=== PATIENT | male | born 1960 | race Caucasian/White ===

== ENCOUNTER 2020-12-04 10:36 | Outpatient (REF) | payer MEDICARE, MEDICAID, SELFPAY ==
[2020-12-04 11:14] LABS: MANUAL DIFF FLAG NO
[2020-12-04 11:35] LABS: Basophils Percent Auto 0.4 % (0-2); Eosinophils Absolute Auto 0.2 X10*3/uL (0.0-0.4); Eosinophils Percent Auto 2.9 % (0-4); Hematocrit 45.6 % (42-52); Imm Gran Abs Auto 0.03 X10*3/uL (0.00-0.03); Imm Gran Pct Auto 0.4 % (0.0-0.4); Lymphocytes Absolute Auto 1.7 X10*3/uL (1.2-4.9); Lymphocytes Percent Auto 25.3 % (20-40); Mean Corpuscular HGB Conc 32.9 g/dl (31.0-36.0); Mean Corpuscular Hemoglobin 32.2 pg (27.0-33.0); Mean Corpuscular Volume 97.9 fL (80-98); Mean Platelet Volume 10.5 fL (9.4-12.4); Monocytes Absolute Auto 0.6 X10*3/uL (0.1-1.2); Monocytes Percent Auto 9.2 % (2-11); Neutrophils Absolute Auto 4.2 X10*3/uL (2.0-8.3); Neutrophils Percent Auto 61.8 % (45-73); Platelet Count 245 X10*3/uL (160-400); Red Blood Count 4.66 X10*6/uL (4.60-5.80); White Blood Count 6.8 X10*3/uL (4.8-10.8)
[2020-12-04 11:40] LABS: Alanine Aminotransferase 17 U/L (0-40); Albumin Level 4.4 g/dL (3.5-5.0); Alkaline Phosphatase 67 U/L (39-117); Anion Gap 12 (12-20); Aspartate Amino Transferase 17 U/L (5-37); Bilirubin Total 0.6 mg/dL (0.0-1.0); Blood Urea Nitrogen 10 mg/dL (9-16); Calcium 9.3 mg/dL (8.4-10.2); Carbon Dioxide 27 mmol/L (22-29); Chloride 105 mmol/L (96-108); Estimated Glomerular Filt Rate > 60; Glucose Random 135 mg/dL (60-115); Potassium 4.2 mmol/L (3.3-5.1); Sodium 140 mmol/L (135-145); Total Protein 7.1 g/dL (6.5-8.0)
== END 2020-12-04 10:37 | disposition home or self-care (01) ==
LOC: HO.LAB 10:36
PROVIDERS: PCP Internal Medicine; Visit Provider Physician Assistant Medical
DX: L40.0 Psoriasis vulgaris (principal); Z79.899 Other long term (current) drug therapy
CPT/HCPCS: 36415; 80053; 85025

== ENCOUNTER 2021-07-12 15:18 | Outpatient (REF) | payer MEDICARE, MEDICAID, SELFPAY ==
[2021-07-12 16:41] LABS: MANUAL DIFF FLAG NO
[2021-07-12 16:44] LABS: Basophils Percent Auto 0.6 % (0-2); Eosinophils Absolute Auto 0.1 X10*3/uL (0.0-0.4); Eosinophils Percent Auto 1.3 % (0-4); Hemoglobin 16.3 g/dl (14.0-18.0); Imm Gran Abs Auto 0.02 X10*3/uL (0.00-0.03); Imm Gran Pct Auto 0.3 % (0.0-0.4); Lymphocytes Absolute Auto 1.6 X10*3/uL (1.2-4.9); Lymphocytes Percent Auto 22.5 % (20-40); Mean Corpuscular Hemoglobin 32.9 pg (27.0-33.0); Mean Platelet Volume 10.6 fL (9.4-12.4); Monocytes Absolute Auto 0.5 X10*3/uL (0.1-1.2); Monocytes Percent Auto 6.6 % (2-11); Neutrophils Absolute Auto 4.8 X10*3/uL (2.0-8.3); Neutrophils Percent Auto 68.7 % (45-73); Platelet Count 276 X10*3/uL (160-400); Red Blood Count 4.95 X10*6/uL (4.60-5.80); Red Cell Distribution Width 13.3 % (11.0-16.0); White Blood Count 6.9 X10*3/uL (4.8-10.8)
[2021-07-12 16:50] LABS: Estimated Average Glucose 160 mg/dL; Hemoglobin A1c % 7.2 %
[2021-07-12 16:58] LABS: Alanine Aminotransferase 30 U/L (0-40); Albumin Level 4.5 g/dL (3.5-5.0); Alkaline Phosphatase 79 U/L (39-117); Anion Gap 13 (12-20); Aspartate Amino Transferase 25 U/L (5-37); Bilirubin Total 0.6 mg/dL (0.0-1.0); Blood Urea Nitrogen 12 mg/dL (9-16); Calcium 10.2 mg/dL (8.4-10.2); Carbon Dioxide 25 mmol/L (22-29); Chloride 106 mmol/L (96-108); Estimated Glomerular Filt Rate > 60; Glucose Random 177 mg/dL (60-115); Potassium 4.7 mmol/L (3.3-5.1); Sodium 139 mmol/L (135-145); Total Protein 7.5 g/dL (6.5-8.0)
[2021-07-12 16:59] LABS: Cholesterol 134 mg/dL; HDL Cholesterol 30 mg/dL; LDL Cholesterol Calculated 70 mg/dl; Triglycerides 173 mg/dL
[2021-07-12 17:19] LABS: Prostate Specific Antigen Scr 0.63 ng/mL (<0.05-4.0); Thyroid Stimulating Hormone 1.34 uIU/mL (0.32-4.0)
[2021-07-19 15:41] LABS: TS Negative Control Passed; TS Panel A 0; TS Panel B 2; TS Positive Control Passed; TSpotTB Negative (SeeBelow)
== END 2021-07-12 15:19 | disposition home or self-care (01) ==
LOC: HO.LAB 15:18
PROVIDERS: Absent Provider Physician Assistant Medical; PCP Internal Medicine; Visit Provider Internal Medicine
DX: Z12.5 Encounter for screening for malignant neoplasm of prostate (principal); E11.65 Type 2 diabetes mellitus with hyperglycemia; E78.00 Pure hypercholesterolemia, unspecified; L40.0 Psoriasis vulgaris; Z79.899 Other long term (current) drug therapy
CPT/HCPCS: 36415; 80053; 80061; 83036; 84153; 84443; 85025; 86481

== ENCOUNTER 2022-09-26 11:25 | Outpatient (REF) | payer MEDICARE, MEDICAID, SELFPAY ==
[2022-09-26 11:40] LABS: MANUAL DIFF FLAG NO
[2022-09-26 12:11] LABS: Basophils Percent Auto 0.3 % (0-2); Eosinophils Percent Auto 0.4 % (0-4); Hematocrit 51.6 % (42.0-52.0); Hemoglobin 17.2 g/dl (14.0-18.0); Imm Gran Abs Auto 0.02 X10*3/uL (0.00-0.03); Imm Gran Pct Auto 0.2 % (0.0-0.4); Lymphocytes Absolute Auto 1.5 X10*3/uL (1.2-4.9); Lymphocytes Percent Auto 14.7 % (20-40); Mean Corpuscular HGB Conc 33.3 g/dl (31.0-36.0); Mean Corpuscular Hemoglobin 32.6 pg (27.0-33.0); Mean Corpuscular Volume 97.7 fL (80.0-98.0); Mean Platelet Volume 10.6 fL (9.4-12.4); Monocytes Absolute Auto 0.6 X10*3/uL (0.1-1.2); Monocytes Percent Auto 6.1 % (2-11); Neutrophils Absolute Auto 7.8 x10*3/uL (2.0-8.3); Neutrophils Percent Auto 78.3 % (45-73); Platelet Count 255 X10*3/uL (160-400); Red Blood Count 5.28 X10*6/uL (4.60-5.80); Red Cell Distribution Width 13.5 % (11.0-16.0); White Blood Count 9.9 X10*3/uL (4.8-10.8)
[2022-09-26 12:12] LABS: Estimated Average Glucose 146 mg/dL; Hemoglobin A1c % 6.7 %
[2022-09-26 13:15] LABS: Blood Urea Nitrogen 17 mg/dL (9-16)
[2022-09-26 13:21] LABS: Alanine Aminotransferase 27 U/L (0-40); Albumin Level 4.7 g/dL (3.5-5.0); Alkaline Phosphatase 76 U/L (39-117); Anion Gap 17 (12-20); Aspartate Amino Transferase 20 U/L (5-37); Calcium 10.1 mg/dL (8.4-10.2); Carbon Dioxide 23 mmol/L (22-29); Chloride 103 mmol/L (96-108); Cholesterol 162 mg/dL; Estimated Glomerular Filt Rate > 60; Free T4 (Free Thyroxine) 0.69 ng/dL (0.71-1.85); Glucose Random 114 mg/dL (60-115); HDL Cholesterol 39 mg/dL; LDL Cholesterol Calculated 87 mg/dl; Potassium 4.4 mmol/L (3.3-5.1); Prostate Specific Antigen Scr 0.79 ng/mL (<0.05-4.0); Sodium 139 mmol/L (135-145); Total Protein 7.8 g/dL (6.5-8.0); Triglycerides 182 mg/dL
[2022-09-26 13:30] LABS: Folate 14.2 ng/mL (> or = 4.0); Vitamin B12 < 148 pg/mL (200-900)
[2022-09-26 17:55] LABS: Creatinine Urine 390.78 mg/dL; Microalbum/Creatinine Ratio Ur 33.7 ug/mg cr
== END 2022-09-26 11:26 | disposition home or self-care (01) ==
LOC: HO.LAB 11:25
PROVIDERS: PCP Internal Medicine; Visit Provider Internal Medicine
DX: Z12.5 Encounter for screening for malignant neoplasm of prostate (principal); E11.65 Type 2 diabetes mellitus with hyperglycemia; E78.00 Pure hypercholesterolemia, unspecified; I10 Essential (primary) hypertension
CPT/HCPCS: 36415; 80053; 80061; 82043; 82607; 82746; 83036; 84153; 84439; 84443; 85025

== ENCOUNTER 2023-08-24 13:15 | Outpatient (REF) | payer MEDICARE, MEDICAID, SELFPAY ==
[2023-08-26 22:34] LABS: TS Negative Control Passed; TS Panel A 0; TS Panel B 0; TS Positive Control Passed; TSpotTB Negative (Negative)
== END 2023-08-24 13:16 | disposition home or self-care (01) ==
LOC: HO.LAB 13:15
PROVIDERS: PCP Internal Medicine; Visit Provider Physician Assistant Medical
DX: L40.0 Psoriasis vulgaris (principal); L98.8 Other specified disorders of the skin and subcutaneous tissue; Z79.899 Other long term (current) drug therapy
CPT/HCPCS: 36415; 86481

== ENCOUNTER 2023-11-28 15:25 | Outpatient (AMB) | payer MEDICARE, MEDICAID, SELFPAY ==
[2023-11-28 15:29] VITALS: BP 138/86; PULSE 103; O2SAT 98; BMI 26.8
--- NOTE | 2023-11-28 15:29 | A.OFFPC_ITS ---
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 Patient's Cologuard test is up-to-date June 2022 [facility] Medical History (Updated 04/18/23 @ 08:37 by Aleksandr Valenzuela MD) Colon cancer screening History of cigarette smoking Initial Medicare annual wellness visit (~08/31/21) Colonoscopy refused Hypercholesterolemia Vitamin D deficiency Psoriasis Hypertension Fragile X syndrome Type 2 diabetes mellitus with hyperglycemia Surgical History History of inguinal hernia repair Family History Father Dementia Chronic mental illness Mental health disorder Mother Hypertension Hyperlipidemia Brother Diabetes Paternal Grandfather Pancreatic cancer Maternal Aunt Uterine cancer Maternal Uncle Stomach cancer Social History (Updated 08/31/21 @ 15:09 by DULCE Bran) Housing: Apartment Alcohol intake: never Patient Tobacco Use Status: Never used Tobacco e-Cigarette/Vaping Use: Never Used Second Hand Smoke Exposure: No service: No Current occupational status: unemployed Cognitive needs: No Hearing needs: No Vision needs: Yes Questionnaire Thrive Questionnaire Date Thrive assessed: 01/13/23 AUDIT C Alcohol Use Questionnaire (AUDIT-C) 1. How often do you have a drink containing alcohol?: Monthly or less 2. How many drinks containing alcohol do you have on a typical day when you are drinking?: 1 or 2 3. How often do you have six or more drinks on one occasion?: Never Total Score: 1 JUANITO-7 AMB Questionnaire JUANITO-7 Date JUANITO - 7 assessed: 11/28/23 Source: Developed by Drs. Vasyl Sequeira, Leyla Dia, Moody King and colleagues, with an educational joel from [employer]. Physical exam (Primary Care) Vital Signs: Last Vital Signs Pulse 103 H 11/28/23 15:29 BP 138/86 11/28/23 15:29 Pulse Ox 98 11/28/23 15:29 Oxygen Delivery Method Room Air 11/28/23 15:29 BMI result Body Mass Index 26.8 Tobacco/Smoking Status: Tobacco use Status Tobacco use date assessed 11/28/23 11/28/23 15:30 Patient Tobacco Use Status Never used Tobacco 11/28/23 15:30 e-Cigarette/Vaping Use Never Used 11/28/23 15:30 Thrive Assessment: Date of Thrive Assessment Date Thrive assessed 01/13/23 11/28/23 15:30 Const General: alert; No acute distress Eyes Conjunctivae: conjunctivae normal Resp Auscultation: clear to auscultation bilaterally Cardio Rate: regular rate Rhythm: regular rhythm GI Inspection: Yes normal to inspection Extrem General: Yes normal to inspection and No edema Office Procedures Flu Questionnaire Does the patient have a severe egg allergy?: No Does the patient have severe life threatening allergies?: No Does the patient have a fever or illness today?: No Has the patient ever had Guillain-[place] Syndrome?: No Has the patient ever had any past reaction to a flu shot?: No Results AMB Hemoglobin A1c AMB Hemoglobin A1c 7.4 % Last Edit by DULCE Jefferson on 11/28/23 15:44 Immunizations flu vacc [id number] 6mos up(PF) 60 mcg(15 mcgx4)/0.5 mL IM syringe Performing Provider: Aleksandr Valenzuela MD [facility] Administered by: DULCE Jefferson on 11/28/23 15:52 Dose Route Admin Location Dispensed Lot Number Expiration Date NDC Field Radio Operator 0.5 mL IM Left Deltoid 0.5 mL [id number] 04/28/24 [id number] Ludesi VIS Given Date VIS Provided VIS Publication Date 11/28/23 Single Vaccine 21 Eligibility Eligibility Date Funding Source Not VFC Eligible 11/28/23 Private Results Reviewed Results Reviewed: Laboratory Last Values Hgb A1c (Clinic) 7.4 % (4.0-6.0) H 11/28/23 14:48 Assessment and Plan Assessment & Plan (1) Type 2 diabetes mellitus with hyperglycemia: Comment: Declined ophthalmology referral August 2022 Code(s): E11.65 - Type 2 diabetes mellitus with hyperglycemia Qualifiers: Diabetes mellitus usp insulin use: without manager terminal use Qualified Code(s): E11.65 - Type 2 diabetes mellitus with hyperglycemia Plan: Decrease the amount of carbohydrate intake, pasta, bread, rice and potatoes are all sugar and that is aside from all the sweet stuff, remember that fruits are good but they are Sweet also. Hemoglobin A1c goal of less than 6.5. Patient is on metformin a 1000 mg twice a day (2) Hypertension: Code(s): I10 - Essential (primary) hypertension Qualifiers: Hypertension type: essential hypertension Qualified Code(s): I10 - Essential (primary) hypertension Plan: Continue with blood pressure medication. Decrease salt intake and exercise patient takes lisinopril 10 mg once a day (3) Hypercholesterolemia: Code(s): E78.00 - Pure hypercholesterolemia, unspecified Plan: Avoid fried foods, chicken skin, eggs, butter margarine, pastries and meat. Be it pork or beef they have a lot of cholesterol LDL goal of less than 100 and triglyceride of less than 150. Patient is reminded of the blood work patient takes rosuvastatin 20 mg once a day and fenofibrate 160 mg once a day (4) Fragile X syndrome: Code(s): Q99.2 - Fragile X chromosome Plan: Mental and behavior problem. Supportive Orders: Orders AMB Hemoglobin A1c Today E11.65 - Type 2 diabetes mellitus with hyperglycemia Influenza [id number] Immunization Today Z23 - Encounter for immunization Referrals Ophthalmology Referral E11.65 - Type 2 diabetes mellitus with hyperglycemia Podiatry Referral E11.65 - Type 2 diabetes mellitus with hyperglycemia Medications: New empagliflozin (Jardiance) 10 mg PO DAILY 30 tabs 3RF E11.65 - Type 2 diabetes mellitus with hyperglycemia Coding Level of Care Code Est Pt Level 4 (58755) Diagnoses Type 2 diabetes mellitus with hyperglycemia, without long-term current use of insulin E11.65 Diabetes mellitus manager terminal insulin use: without manager terminal use Essential hypertension I10 Hypertension type: essential hypertension Hypercholesterolemia E78.00 Fragile X syndrome Q99.2
== END 2023-11-28 16:00 | disposition home or self-care (01) ==
PROVIDERS: PCP Nurse Practitioner Family; Visit Provider Internal Medicine
DX: E11.65 Type 2 diabetes mellitus with hyperglycemia (principal); I10 Essential (primary) hypertension; E78.00 Pure hypercholesterolemia, unspecified; Q99.2 Fragile X chromosome; Z23 Encounter for immunization
CPT/HCPCS: 83036; 90471; 90686; 99214

== ENCOUNTER 2023-12-04 09:42 | Outpatient (REF) | payer MEDICARE, SELFPAY ==
[2023-12-04 10:15] LABS: MANUAL DIFF FLAG NO
[2023-12-04 10:37] LABS: Basophils Percent Auto 0.6 % (0-2); Eosinophils Absolute Auto 0.2 X10*3/uL (0.0-0.4); Eosinophils Percent Auto 2.4 % (0-4); Hematocrit 45.7 % (42.0-52.0); Hemoglobin 15.4 g/dl (14.0-18.0); Imm Gran Abs Auto 0.01 X10*3/uL (0.00-0.03); Imm Gran Pct Auto 0.1 % (0.0-0.4); Lymphocytes Absolute Auto 2.4 X10*3/uL (1.2-4.9); Lymphocytes Percent Auto 35.8 % (20-40); Mean Corpuscular HGB Conc 33.7 g/dl (31.0-36.0); Mean Corpuscular Hemoglobin 32.6 pg (27.0-33.0); Mean Corpuscular Volume 96.8 fL (80.0-98.0); Monocytes Absolute Auto 0.6 X10*3/uL (0.1-1.2); Monocytes Percent Auto 9.2 % (2-11); Neutrophils Absolute Auto 3.5 x10*3/uL (2.0-8.3); Neutrophils Percent Auto 51.9 % (45-73); Platelet Count 275 X10*3/uL (160-400); Red Blood Count 4.72 X10*6/uL (4.60-5.80); Red Cell Distribution Width 12.6 % (11.0-16.0); White Blood Count 6.8 X10*3/uL (4.8-10.8)
[2023-12-04 11:08] LABS: Estimated Average Glucose 157 mg/dL; Hemoglobin A1c % 7.1 % (<6.0)
[2023-12-04 11:16] LABS: Creatinine Urine 79.34 mg/dL; Microalbum/Creatinine Ratio Ur 12.6 ug/mg cr (<30)
[2023-12-04 11:21] LABS: Alanine Aminotransferase 13 U/L (0-40); Albumin Level 4.1 g/dL (3.5-5.0); Alkaline Phosphatase 79 U/L (39-117); Anion Gap 16 (12-20); Aspartate Amino Transferase 14 U/L (5-37); Bilirubin Total 0.3 mg/dL (0.0-1.0); Blood Urea Nitrogen 20 mg/dL (9-16); Calcium 9.8 mg/dL (8.4-10.2); Carbon Dioxide 24 mmol/L (22-29); Chloride 104 mmol/L (96-108); Estimated Glomerular Filt Rate 60; Glucose Random 133 mg/dL (60-115); Potassium 3.9 mmol/L (3.3-5.1); Sodium 140 mmol/L (135-145); Total Protein 7.2 g/dL (6.5-8.0)
[2023-12-04 11:39] LABS: Free T4 (Free Thyroxine) 0.71 ng/dL (0.71-1.85); Thyroid Stimulating Hormone 2.16 uIU/mL (0.32-4.0)
[2023-12-04 11:40] LABS: Folate 9.6 ng/mL (> or = 4.0); Prostate Specific Antigen Scr 0.58 ng/mL (<0.05-4.0); Vitamin B12 673 pg/mL (200-900)
== END 2023-12-04 09:43 | disposition home or self-care (01) ==
LOC: HO.LAB 09:42
PROVIDERS: PCP Internal Medicine; Visit Provider Internal Medicine
DX: Z12.5 Encounter for screening for malignant neoplasm of prostate (principal); E11.65 Type 2 diabetes mellitus with hyperglycemia
CPT/HCPCS: 36415; 80053; 82043; 82570; 82607; 82746; 83036; 84153; 84439; 84443; 85025

== ENCOUNTER 2024-03-26 12:16 | Outpatient (AMB) | payer MEDICARE, MEDICAID, SELFPAY ==
--- NOTE | 2024-03-26 12:35 | A.OFFPC_ITS ---
Vital Signs 03/26/24 12:36 Height 5 ft 10 in Weight 183 lb 6 oz BMI 26.3 BP 110/70 Blood Pressure Location Lt brachial Position Sitting Pulse 110 H Pulse Source Pulse Oximeter Pulse Oximetry (%) 96 Oxygen Delivery Method Room Air Intake Visit Reasons: DM Follow Up Intake Note: Patient is here to follow up on DM. Optician Apprentice Dispensing Required: No Compound Specialist: Not Required per policy Accompanied by: Self / Same As Patient Allergies folic acid Allergy (Unknown, Verified 03/26/24 12:36) Unknown Medication List - Last Reconciled 03/26/24 by Aleksandr Valenzuela MD cyanocobalamin (vitamin B-12) 1,000 mcg PO DAILY 90 days empagliflozin (Jardiance) 10 mg PO DAILY escitalopram oxalate 10 mg PO BID fenofibrate 160 mg PO DAILY lisinopril 10 mg PO DAILY metformin 1,000 mg PO BID 90 days rosuvastatin 20 mg PO DAILY Tobacco use date assessed: 03/26/24 Dental Screening Dental Screen Date: 11/28/23 HPI DM Follow Up HPI Details 64-year-old overweight male with a histo ry diabetes mellitus hypertension hypercholesterolemia. Patient does have a mental behavior problem coming in for follow-up. Patient was last seen in October and the last blood work was in November but cholesterol was not done at that time and request for blood work done. PAtient declined to have blood work done [facility] Medical History (Updated 04/18/23 @ 08:37 by Aleksandr Valenzuela MD) Colon cancer screening History of cigarette smoking Initial Medicare annual wellness visit (~08/31/21) Colonoscopy refused Hypercholesterolemia Vitamin D deficiency Psoriasis Hypertension Fragile X syndrome Type 2 diabetes mellitus with hyperglycemia Surgical History History of inguinal hernia repair Family History Father Dementia Chronic mental illness Mental health disorder Mother Hypertension Hyperlipidemia Brother Diabetes Paternal Grandfather Pancreatic cancer Maternal Aunt Uterine cancer Maternal Uncle Stomach cancer Social History Housing: Apartment Alcohol intake: never Patient Tobacco Use Status: Never used Tobacco e-Cigarette/Vaping Use: Never Used Second Hand Smoke Exposure: No service: No Current occupational status: unemployed Cognitive needs: No Hearing needs: No Vision needs: Yes Questionnaire PHQ-9 Over the last 2 weeks, how often have you been bothered by any of the following problems? 1. Little interest or pleasure in doing things: not at all 2. Feeling down, depressed, or hopeless: not at all 3. Trouble falling or staying asleep, or sleeping too much: not at all 4. Feeling tired or having little energy: not at all 5. Poor appetite or overeating: not at all 6. Feeling bad about yourself - or that you are a failure or have let yourself or your family down: not at all 7. Trouble concentrating on things, such as reading the newspaper or watching television: not at all 8. Moving or speaking so slowly that other people could have noticed. Or the opposite - being so fidgety or restless that you have been moving around a lot more than usual: not at all 9. Thoughts that you would be better off or of hurting yourself in some way: not at all Total score: 0 Depression Screening Interpretation: Negative Depression Screening Done: Yes Source: Developed by Drs. Vasyl Sequeira, Leyla Dia, Moody Kign and colleagues, with an educational joel from [employer]. Thrive Questionnaire Date Thrive assessed: 03/26/24 I am a: Patient What is your living situation today?: I have a steady place to live Within the past 12 months, did the food you bought not last and you didn't have the money to get more?: Never true Within the past 12 months, did you worry whether your food would run out before you got money to buy more?: Never true Do you have trouble paying for medicines?: No Do you have trouble getting transportation to medical appointments?: No Do you have trouble paying your heating and electricity bill?: No Do you have trouble taking care of your child, family member or friend?: No Do you have trouble with day-to-day activities such as bathing, preparing meals, shopping, managing finances, etc.?: No Are you currently unemployed and looking for a job?: No Are you interested in more education?: No Currently or been in a relationship where the following occur: no concerns reported THRIVE Score: 0 JUANITO-7 AMB Questionnaire JUANITO-7 Date JUANITO - 7 assessed: 11/28/23 Source: Developed by Drs. Vasyl Sequeira, Leyla Dia, Moody King and colleagues, with an educational joel from [employer]. Physical exam (Primary Care) Tobacco/Smoking Status: Tobacco use Status Tobacco use date assessed 11/28/23 11/28/23 15:30 Patient Tobacco Use Status Never used Tobacco 11/28/23 15:30 e-Cigarette/Vaping Use Never Used 11/28/23 15:30 Depression Screening Interpretation: Negative Thrive Assessment: Date of Thrive Assessment Date Thrive assessed 01/13/23 11/28/23 15:30 Currently or been in a relationship where the following occur: no concerns reported Const General: alert; No acute distress Eyes Conjunctivae: conjunctivae normal Resp Auscultation: clear to auscultation bilaterally Cardio Rate: regular rate Rhythm: regular rhythm GI Inspection: Yes normal to inspection Extrem General: Yes normal to inspection and No edema Results AMB Hemoglobin A1c AMB Hemoglobin A1c 7.0 % Last Edit by DULCE Bran on 03/26/24 12:54 Assessment and Plan Assessment & Plan (1) Type 2 diabetes mellitus with hyperglycemia: Comment: Declined ophthalmology referral August 2022 Code(s): E11.65 - Type 2 diabetes mellitus with hyperglycemia Qualifiers: Diabetes mellitus remote computer terminal operator insulin use: without remote computer terminal operator use Qualified Code(s): E11.65 - Type 2 diabetes mellitus with hyperglycemia Plan: Decrease the amount of carbohydrate intake, pasta, bread, rice and potatoes are all sugar and that is aside from all the sweet stuff, remember that fruits are good but they are Sweet also. Goal hemoglobin A1c is less than 6.5. On Jardiance 10 mg once a day metformin a 1000 mg twice a day (2) Hypertension: Code(s): I10 - Essential (primary) hypertension Qualifiers: Hypertension type: essential hypertension Qualified Code(s): I10 - Essential (primary) hypertension Plan: Continue with blood pressure medication. Decrease salt intake and exercise on lisinopril 10 mg once a day (3) Hypercholesterolemia: Code(s): E78.00 - Pure hypercholesterolemia, unspecified Plan: Avoid fried foods, chicken skin, eggs, butter margarine, pastries and meat. Be it pork or beef they have a lot of cholesterol on fenofibrate 160 mg once a day rosuvastatin 20 mg once a day. Patient was advised to get the blood work done. Orders: Orders AMB Hemoglobin A1c Today E11.65 - Type 2 diabetes mellitus with hyperglycemia Medications: Changed From empagliflozin (Jardiance) 10 mg PO DAILY 30 tabs 3RF E11.65 - Type 2 diabetes mellitus with hyperglycemia To empagliflozin 25 mg PO DAILY 30 tabs 3RF E11.65 - Type 2 diabetes mellitus with hyperglycemia Refilled rosuvastatin 20 mg PO DAILY 90 tabs 1RF E78.00 - Pure hypercholesterolemia, unspecified fenofibrate 160 mg PO DAILY 90 tabs 1RF E78.00 - Pure hypercholesterolemia, unspecified Coding Level of Care Code Est Pt Level 4 (91812) Diagnoses Type 2 diabetes mellitus with hyperglycemia, without long-term current use of insulin E11.65 Diabetes mellitus fpc insulin use: without fpc use Essential hypertension I10 Hypertension type: essential hypertension Hypercholesterolemia E78.00
[2024-03-26 12:36] VITALS: BP 110/70; PULSE 110; O2SAT 96; BMI 26.3
== END 2024-03-26 13:08 | disposition home or self-care (01) ==
PROVIDERS: PCP Internal Medicine; Visit Provider Internal Medicine
DX: E11.65 Type 2 diabetes mellitus with hyperglycemia (principal); I10 Essential (primary) hypertension; E78.00 Pure hypercholesterolemia, unspecified
CPT/HCPCS: 83036; 99214

== ENCOUNTER 2024-04-11 09:48 | Outpatient (AMB) | payer MEDICARE, MEDICAID, SELFPAY ==
--- NOTE | 2024-04-11 09:58 | A.OFFVIS_ITS ---
VS Expanded 04/11/24 10:00 04/16/24 09:36 Height 5 ft 10 in 5 ft 10 in Weight 183 lb 6.793 oz 183 lb BMI 26.3 26.3 Intake Visit Reasons: T2DM/CONFIMRED Allergies folic acid Allergy (Unknown, Verified 03/26/24 12:36) Unknown Nutrition Presentation Details: Pt presents for MNT for T2DM. Pt was referred by Dr. Valenzuela, PCP Pt requests meal planing ideas, simple for him to prepare. Pt reports using microwave to prepare meals Lives by himself, prepares own meals. Pt's case operator, Lanny, was present during this appt. food frequency fruits: 0-1/d, has light juice majority of the time fish: 0-1 /wk dairy : 3+ /day vegetables: 1 serving/d fried foods: 0-1/wk pastries : daily - acknowledges increasing on these types of foods lately physical activity: sedentary etoh: occ w fam member smoking: denies BS Monitoring Most Recent Diabetes Results: Microalb/Creat Ratio 12.6 ug/mg cr (<30) 12/04/23 Cholesterol 162 mg/dL 09/26/22 HDL Cholesterol 39 mg/dL 09/26/22 Triglycerides 182 mg/dL 09/26/22 Creatinine 1.23 mg/dL (0.5-1.4) 12/04/23 Blood Urea Nitrogen 20 mg/dL (9-16) H 12/04/23 Sodium 140 mmol/L (135-145) 12/04/23 Potassium 3.9 mmol/L (3.3-5.1) 12/04/23 Chloride 104 mmol/L (96-108) 12/04/23 Carbon Dioxide 24 mmol/L (22-29) 12/04/23 Calcium 9.8 mg/dL (8.4-10.2) 12/04/23 AST 14 U/L (5-37) 12/04/23 ALT 13 U/L (0-40) 12/04/23 Total Protein 7.2 g/dL (6.5-8.0) 12/04/23 Albumin 4.1 g/dL (3.5-5.0) 12/04/23 VPT-Bnglbmw-Mi.Jeor Equation Height: 5 ft 10 in Weight: 183 lb Resting Metabolic Rate: 1635.53 Calculated Activity Level: Mild Activity Calories Needed to Maintain Weight: 2248.85 Diagnosis Nutrition problem #1: food nutri know defi As related to (etiology) #1: diagnosis As evidenced by (sign/symptom) #1: knowledge deficit of diet ON LICENSE OF [facility] Medical History (Updated 04/13/24 @ 11:[address], LDN) Colon cancer screening History of cigarette smoking Initial Medicare annual wellness visit (~08/31/21) Colonoscopy refused Hypercholesterolemia Vitamin D deficiency Psoriasis Hypertension Fragile X syndrome Type 2 diabetes mellitus with hyperglycemia Surgical History History of inguinal hernia repair Family History Father Dementia Chronic mental illness Mental health disorder Mother Hypertension Hyperlipidemia Brother Diabetes Paternal Grandfather Pancreatic cancer Maternal Aunt Uterine cancer Maternal Uncle Stomach cancer Social History Housing: Apartment Alcohol intake: never Patient Tobacco Use Status: Never used Tobacco e-Cigarette/Vaping Use: Never Used Second Hand Smoke Exposure: No service: No Current occupational status: unemployed Cognitive needs: No Hearing needs: No Vision needs: Yes Assessment & Plan Assessment & Plan (1) Type 2 diabetes mellitus with hyperglycemia: Code(s): E11.65 - Type 2 diabetes mellitus with hyperglycemia Category: Medical Qualifiers: Diabetes mellitus care home insulin use: without intermodal dispatcher use Qualified Code(s): E11.65 - Type 2 diabetes mellitus with hyperglycemia Plan: Wt: 83 Kg ( 03/2024 ) Est kcal needs as per MSJ: 2200 (40% carb, 30% protein/fat) Est fluid needs as per 25-30 ml/d: 2100 Est prot per day as per 1 g/kg bw: 83 Recommend fiber intake : 8-10 g per day and gradually increase to 25-28 g per day for women and 35-38 g for men or as tolerated Recommend sodium intake per day : less than 2000 mg Educated patient on: ( R = reviewed V = verbalizes understanding N/R = needs review N/A = not applicable * Food sources of carbohydrate, adequate serving sizes and its role in various health conditions: R V N/R * Differences between complex carbohydrates a simple carbohydrates, role of fiber in diet: R V N/R * Lean protein sources of foods: R V NR * Differences between types of fats and role in diet (mono on saturated fat fatty acids, saturated fatty acids, trans fats): R V N/R * Food sources of sodium in salt and healthy modifications for heart health in kidney health: R V R/V * Vitamins and minerals: R V N/R * Healthy plate method concept: R * Physical activity: Benefits a precaution: R V N/R * Hypoglycemia protocol (rule of 15): R V N/R * Dietary prevention of Hyperglycemia: R Patient Instructions: follow healthy plate method at dinner Choose yogurt or fruit or 4 peanut butter crackers as snack and 1 cup of milk Have water with meals , cutting down on sugary beverages Coding Level of Care Code Nutr Indiv Subseq (94188) Diagnoses Type 2 diabetes mellitus with hyperglycemia, without long-term current use of insulin E11.65 Diabetes mellitus intermodal dispatcher insulin use: without intermodal dispatcher use Time Spent (min) 30
[2024-04-11 10:00] VITALS: BMI 26.3
[2024-04-18 10:51] VITALS: BMI 26.3
== END 2024-04-11 10:36 | disposition home or self-care (01) ==
PROVIDERS: PCP Internal Medicine; Visit Provider Dietitian, Registered
DX: E11.65 Type 2 diabetes mellitus with hyperglycemia (principal)

== ENCOUNTER → 2024-04-11 09:48 | Outpatient (BNVA) | payer MEDICARE, MEDICAID, SELFPAY | PROVIDERS: PCP Internal Medicine; Visit Provider Dietitian, Registered | DX: E11.65 Type 2 diabetes mellitus with hyperglycemia (principal); E78.00 Pure hypercholesterolemia, unspecified; E55.9 Vitamin D deficiency, unspecified; Z71.3 Dietary counseling and surveillance | CPT/HCPCS: 97803 ==

== ENCOUNTER 2024-05-30 09:42 | Outpatient (AMB) | payer MEDICARE, MEDICAID, SELFPAY ==
[2024-05-30 10:14] VITALS: BMI 27.1
--- NOTE | 2024-05-30 10:14 | A.OFFVIS_ITS ---
VS Expanded 05/30/24 10:14 Height 5 ft 10 in Weight 188 lb 11.451 oz BMI 27.1 Intake Visit Reasons: [id number] Allergies folic acid Allergy (Unknown, Verified 03/26/24 12:36) Unknown Nutrition Presentation Details: Pt presents for MNT for T2DM, HTN, Hyperlipidemia Pt reports working on reducing sugars, has tried different foods /suggestions but did not like them (diluting juice with water) reports eating more fruits, recent outing with siblings, food related BS Monitoring Most Recent Diabetes Results: Microalb/Creat Ratio 12.6 ug/mg cr (<30) 12/04/23 Cholesterol 162 mg/dL 09/26/22 HDL Cholesterol 39 mg/dL 09/26/22 Triglycerides 182 mg/dL 09/26/22 Creatinine 1.23 mg/dL (0.5-1.4) 12/04/23 Blood Urea Nitrogen 20 mg/dL (9-16) H 12/04/23 Sodium 140 mmol/L (135-145) 12/04/23 Potassium 3.9 mmol/L (3.3-5.1) 12/04/23 Chloride 104 mmol/L (96-108) 12/04/23 Carbon Dioxide 24 mmol/L (22-29) 12/04/23 Calcium 9.8 mg/dL (8.4-10.2) 12/04/23 AST 14 U/L (5-37) 12/04/23 ALT 13 U/L (0-40) 12/04/23 Total Protein 7.2 g/dL (6.5-8.0) 12/04/23 Albumin 4.1 g/dL (3.5-5.0) 12/04/23 [facility] Medical History (Updated 04/13/24 @ 11:[address], LDN) Colon cancer screening History of cigarette smoking Initial Medicare annual wellness visit (~08/31/21) Colonoscopy refused Hypercholesterolemia Vitamin D deficiency Psoriasis Hypertension Fragile X syndrome Type 2 diabetes mellitus with hyperglycemia Surgical History History of inguinal hernia repair Family History Father Dementia Chronic mental illness Mental health disorder Mother Hypertension Hyperlipidemia Brother Diabetes Paternal Grandfather Pancreatic cancer Maternal Aunt Uterine cancer Maternal Uncle Stomach cancer Social History Housing: Apartment Alcohol intake: never Patient Tobacco Use Status: Never used Tobacco e-Cigarette/Vaping Use: Never Used Second Hand Smoke Exposure: No service: No Current occupational status: unemployed Cognitive needs: No Hearing needs: No Vision needs: Yes Assessment & Plan Assessment & Plan (1) Type 2 diabetes mellitus with hyperglycemia: Code(s): E11.65 - Type 2 diabetes mellitus with hyperglycemia Category: Medical Qualifiers: Diabetes mellitus alf insulin use: without marketing assistant use Qualified Code(s): E11.65 - Type 2 diabetes mellitus with hyperglycemia Plan: Wt: 83 Kg ( 03/2024 ), 86kg (05/2024) Est kcal needs as per MSJ: 2200 (40% carb, 30% protein/fat) Est fluid needs as per 25-30 ml/d: 2100 Est prot per day as per 1 g/kg bw: 83 Recommend fiber intake : 8-10 g per day and gradually increase to 25-28 g per day for women and 35-38 g for men or as tolerated Recommend sodium intake per day : less than 2000 mg Educated patient on: ( R = reviewed V = verbalizes understanding N/R = needs review N/A = not applicable Reducing sugars * Food sources of carbohydrate, adequate serving sizes and its role in various health conditions: R V N/R * Differences between complex carbohydrates a simple carbohydrates, role of fiber in diet: R V N/R * Lean protein sources of foods: R V NR * Differences between types of fats and role in diet (mono on saturated fat fatty acids, saturated fatty acids, trans fats): R V N/R * Food sources of sodium in salt and healthy modifications for heart health in kidney health: R V R/V * Vitamins and minerals: R V N/R * Healthy plate method concept: R * Physical activity: Benefits a precaution: R V N/R * Hypoglycemia protocol (rule of 15): R V N/R * Dietary prevention of Hyperglycemia: R Patient Instructions: try sparkling water in place of juice drinks/sodas Have carrots with your sandwich in place of chips Coding Level of Care Code Nutr Indiv Subseq (10916) Diagnoses Type 2 diabetes mellitus with hyperglycemia, without long-term current use of i nsulin E11.65 Diabetes mellitus marketing assistant insulin use: without alf use Time Spent (min) 30
== END 2024-05-30 10:35 | disposition home or self-care (01) ==
PROVIDERS: PCP Internal Medicine; Visit Provider Dietitian, Registered
DX: E11.65 Type 2 diabetes mellitus with hyperglycemia (principal)

== ENCOUNTER → 2024-05-30 09:42 | Outpatient (BNVA) | payer MEDICARE, MEDICAID, SELFPAY | PROVIDERS: PCP Internal Medicine; Visit Provider Dietitian, Registered | DX: E11.65 Type 2 diabetes mellitus with hyperglycemia (principal); I10 Essential (primary) hypertension; E78.5 Hyperlipidemia, unspecified; Z71.3 Dietary counseling and surveillance | CPT/HCPCS: 97803 ==

== ENCOUNTER 2024-08-01 09:48 | Outpatient (AMB) | payer MEDICARE, MEDICAID, SELFPAY ==
[2024-08-01 09:50] VITALS: BMI 26.7
--- NOTE | 2024-08-01 09:50 | A.OFFVIS_ITS ---
VS Expanded 08/01/24 09:50 Height 5 ft 10 in Weight 186 lb 4.65 oz BMI 26.7 Intake Visit Reasons: T2DM/CONFIRMED Allergies folic acid Allergy (Unknown, Verified 03/26/24 12:36) Unknown Nutrition Presentation Details: Pt presents for MNT f/u for T2DM, hypercholesterolemia Pt reports working on reducing on pastries Meals may consist of coffee and muffin [place] for lunch, diet coke snack pastries, fruits dinner: pizza reports having frozen vegetables at home but forgets to include them etoh 1/wk BS Monitoring Most Recent Diabetes Results: Microalb/Creat Ratio 12.6 ug/mg cr (<30) 12/04/23 Creatinine 1.23 mg/dL (0.5-1.4) 12/04/23 Blood Urea Nitrogen 20 mg/dL (9-16) H 12/04/23 Sodium 140 mmol/L (135-145) 12/04/23 Potassium 3.9 mmol/L (3.3-5.1) 12/04/23 Chloride 104 mmol/L (96-108) 12/04/23 Carbon Dioxide 24 mmol/L (22-29) 12/04/23 Calcium 9.8 mg/dL (8.4-10.2) 12/04/23 AST 14 U/L (5-37) 12/04/23 ALT 13 U/L (0-40) 12/04/23 Total Protein 7.2 g/dL (6.5-8.0) 12/04/23 Albumin 4.1 g/dL (3.5-5.0) 12/04/23 [facility] Medical History (Updated 04/13/24 @ 11:49 by Roma Wisdom, RD, LDN) Colon cancer screening History of cigarette smoking Initial Medicare annual wellness visit (~08/31/21) Colonoscopy refused Hypercholesterolemia Vitamin D deficiency Psoriasis Hypertension Fragile X syndrome Type 2 diabetes mellitus with hyperglycemia Surgical History History of inguinal hernia repair Family History Father Dementia Chronic mental illness Mental health disorder Mother Hypertension Hyperlipidemia Brother Diabetes Paternal Grandfather Pancreatic cancer Maternal Aunt Uterine cancer Maternal Uncle Stomach cancer Social History (Reviewed 03/26/24 @ 12:35 by SASCHA Bran Housing: Apartment Alcohol intake: never Patient Tobacco Use Status: Never used Tobacco e-Cigarette/Vaping Use: Never Used Second Hand Smoke Exposure: No service: No Current occupational status: unemployed Cognitive needs: No Hearing needs: No Vision needs: Yes Assessment & Plan Assessment & Plan (1) Type 2 diabetes mellitus with hyperglycemia: Code(s): E11.65 - Type 2 diabetes mellitus with hyperglycemia Category: Medical Qualifiers: Diabetes mellitus ad terminal makeup operator insulin use: without jail use Qualified Code(s): E11.65 - Type 2 diabetes mellitus with hyperglycemia Plan: Wt: 83 Kg ( 03/2024 ), 86kg (05/2024), 85kg (08/22) Est kcal needs as per MSJ: 2200 (40% carb, 30% protein/fat) Est fluid needs as per 25-30 ml/d: 2100 Est prot per day as per 1 g/kg bw: 83 Recommend fiber intake : 8-10 g per day and gradually increase to 25-28 g per day for women and 35-38 g for men or as tolerated Recommend sodium intake per day : less than 2000 mg Educated patient on: ( R = reviewed V = verbalizes understanding N/R = needs review N/A = not applicable Reducing sugars * Food sources of carbohydrate, adequate serving sizes and its role in various health conditions: R V N/R * Differences between complex carbohydrates a simple carbohydrates, role of fiber in diet: R V N/R * Lean protein sources of foods: R V NR * Differences between types of fats and role in diet (mono on saturated fat fatty acids, saturated fatty acids, trans fats): R V N/R * Food sources of sodium in salt and healthy modifications for heart health in kidney health: R V R/V * Vitamins and minerals: R V N/R * Healthy plate method concept: R * Physical activity: Benefits a precaution: R V N/R * Hypoglycemia protocol (rule of 15): R V N/R * Dietary prevention of Hyperglycemia: R Patient Instructions: Work on following healthy plate method alternate between egg muffin and banana in AM and muffin and peanut butter Coding Level of Care Code Nutr Indiv Subseq (22847) Diagnoses Type 2 diabetes mellitus with hyperglycemia, without long-term current use of insulin E11.65 Diabetes mellitus ad terminal makeup operator insulin use: without ad terminal makeup operator use Time Spent (min) 20
== END 2024-08-01 10:19 | disposition home or self-care (01) ==
PROVIDERS: PCP Internal Medicine; Visit Provider Dietitian, Registered
DX: E11.65 Type 2 diabetes mellitus with hyperglycemia (principal)

== ENCOUNTER → 2024-08-01 09:48 | Outpatient (BNVA) | payer MEDICARE, MEDICAID, SELFPAY | PROVIDERS: PCP Internal Medicine; Visit Provider Dietitian, Registered | DX: E11.65 Type 2 diabetes mellitus with hyperglycemia (principal) | CPT/HCPCS: 97803 ==

== ENCOUNTER 2024-08-05 14:54 | Outpatient (AMB) | payer MEDICARE, MEDICAID, SELFPAY ==
--- NOTE | 2024-08-05 14:58 | A.OFFVIS_ITS ---
Intake Vital Signs 08/05/24 15:01 Height 5 ft 10 in Weight 180 lb 6 oz BMI 25.9 BP 130/70 Blood Pressure Location Lt brachial Position Sitting Pulse 97 Pulse Source Pulse Oximeter Pulse Oximetry (%) 95 Oxygen Delivery Method Room Air Intake Visit Reasons: AWV Intake Note: Patient is here for an Annual Wellness Visit. Senior Backup Administrator Required: No Energy Administrator: Energy Administrator offered & declined Accompanied by: Self / Same As Patient Allergies folic acid Allergy (Unknown, Verified 08/05/24 15:01) Unknown Medication List - Last Reconciled 08/05/24 by Aleksandr Valenzuela MD cyanocobalamin (vitamin B-12) 1,000 mcg PO DAILY 90 days dapagliflozin propanediol (Farxiga) 10 mg PO DAILY escitalopram oxalate 10 mg PO BID fenofibrate 160 mg PO DAILY lisinopril 10 mg PO DAILY metformin 1,000 mg PO BID 90 days rosuvastatin 20 mg PO DAILY HPI AWV HPI Details 64-year-old male with diabetes mellitus hypertension hypercholesterolemia. Patient has a fragile X syndrome with mental behavior problem coming in for annual well visit last seen in 03/18/2024. Patient is up-to-date with Cologuard testing negative in June 2022. [facility] Medical History (Updated 08/05/24 @ 15:30 by Aleksandr Valenzuela MD) Colon cancer screening History of cigarette smoking Initial Medicare annual wellness visit (~08/31/21) Colonoscopy refused Hypercholesterolemia Vitamin D deficiency Psoriasis Hypertension Fragile X syndrome Type 2 diabetes mellitus with hyperglycemia Surgical History History of inguinal hernia repair Family History Father Dementia Chronic mental illness Mental health disorder Mother Hypertension Hyperlipidemia Brother Diabetes Paternal Grandfather Pancreatic cancer Maternal Aunt Uterine cancer Maternal Uncle Stomach cancer Social History Housing: Apartment Alcohol intake: never Patient Tobacco Use Status: Never used Tobacco e-Cigarette/Vaping Use: Never Used Second Hand Smoke Exposure: No service: No Current occupational status: unemployed Cognitive needs: No Hearing needs: No Vision needs: Yes Questionnaire Medicare Wellness Checkup What is your age?: 65-69 (64) What gender do you identify with?: male During the past 4 weeks, how much have you been bothered by emotional problems such as feeling anxious, depressed, irritable, sad or downhearted, and blue?: not at all During the past 4 weeks, has your physical & emotional health limited your social activities with family, friends, neighbors, or groups?: not at all During the past 4 weeks, how much bodily pain have you generally had?: no pain During the past 4 weeks, was someone available to help you if you needed & wanted help?: yes, quite a bit During the past 4 weeks, what was the hardest physical activity you could do for at least 2 minutes?: light Can you get to places out of walking distance without help? (For eg., can you travel alone on buses, taxis or drive your car?): Yes Can you go shopping for groceries or clothes without someone's help?: No Can you prepare your own meals?: Yes Can you do your housework without help?: Yes Because of any health problems, do you need the help of another person with your personal care needs such as eating, bathing, dressing or getting around the house?: No Can you handle your own money without help?: Yes During the past 4 weeks, how would you rate your health in general?: excellent During the past 4 weeks how have things been going for you?: very well; could hardly better Are you having difficulties driving your car?: no Do you always fasten your seat belt when you are in a car?: yes, usually During past 4 weeks, have you been bothered by the following: never: Falling or dizzy when standing up, Sexual problems?, Trouble eating well?, Teeth or denture problems?, Problems using the telephone? and Tiredness or fatigue? Have you fallen 2 or more times in the past year?: No Are you afraid of falling?: No Are you a smoker?: no During the past 4 weeks, how many drinks of wine, beer, or other alcoholic beverages did you have?: no alcohol at all Do you exercise for about 20 minutes 3 or more times a week?: yes, some of the time Have you been given information to help with the following?: no: Hazards in your house that might hurt you? and no: Keeping track of your medications? How often do you have trouble taking medicines the way you have been told to take them?: I always take medicine as prescribed How confident are you that you can control & manage most of your health problems?: very confident What is your race?: [place] Thrive Questionnaire Date Thrive assessed: 03/26/24 Are you currently unemployed and looking for a job?: No JUANITO-7 AMB Questionnaire JUANITO-7 Date JUANITO - 7 assessed: 11/28/23 Source: Developed by Drs. Vasyl Sequeira, Leyla Dia, Moody King and colleagues, with an educational joel from [employer]. Review of Systems Const Denies poor appetite and Denies weakness Eyes Denies no additional complaints ENT Reports Normal hearing present, Denies dizziness, Denies nasal congestion, Denies tinnitus and Denies sore throat Card Denies chest pain, Denies syncope, Denies rapid heart rate and Denies dyspnea Resp Denies cough and Denies dyspnea GI Denies change in stool character, Reports constipation, Denies diarrhea, Denies nausea and Denies vomiting Denies dysuria and Denies urinary frequency Neuro Reports Normal hearing present, Denies confusion, Denies dizziness, Denies syncope and Denies weakness Psych Denies confusion Physical Exam Vital Signs: Last Vital Signs Pulse 97 08/05/24 15:01 BP 130/70 08/05/24 15:01 Pulse Ox 95 08/05/24 15:01 Oxygen Delivery Method Room Air 08/05/24 15:01 BMI result Body Mass Index 25.9 Const General: alert and awake; No confusion Orientation/consciousness: No confusion HEENT Other: impacted cerumen bilateral Head: Yes normocephalic Ears: external ears normal Face and sinus: Yes normal facial exam Mouth: moist mucous membranes Throat: Yes tonsils normal Eyes Conjunctivae: conjunctivae normal Pupils: Equal, round and reactive pupils present and Pupil accommodation reflex normal Direct Ophthalmoscopy: normal light reflex Neck Neck: No lymphadenopathy Thyroid: Thyroid normal Chest Chest palpation & inspection: normal inspection of the chest Resp Effort & Inspection: normal respiratory effort and no audible wheezes Auscultation: clear to auscultation bilaterally, no crackles, no wheezes and lung sounds not diminished Cardio Rate: regular rate Rhythm: regular rhythm Peripheral pulses: radial pulses present and dorsalis pedis present GI Other: guaiac negative , prostate N Palpation (GI): no masses Auscultation: normal bowel sounds and normoactive bowel sounds Rectal Exam - Male: Yes deferred Male General Exam: Yes normal external exam Skin General skin exam: no rashes or lesions noted Rashes: no rashes Neuro General: deep tendon reflexes 2+ bilaterally and No confusion Cranial nerves: Yes Equal, round and reactive pupils present, Yes Midline tongue present, Yes Normal hearing present and Yes Ability to bilaterally elevate shoulders present Cognition (Neuro): normal cognition Gait exam (Neuro): Normal gait present Motor exam (neuro): 5/5 motor strength present throughout Deep tendon reflexes (DTR's): Right brachioradialis reflex intensity grade: 2+, Left brachioradialis reflex intensity grade: 2+, Right patellar reflex intensity grade: 2+ and Left patellar reflex intensity grade: 2+ Extrem General: No edema Office Procedures Flu Questionnaire Does the patient have a severe egg allergy?: No Does the patient have severe life threatening allergies?: No Does the patient have a fever or illness today?: No Has the patient ever had Guillain-Hawthorne Syndrome?: No Has the patient ever had any past reaction to a flu shot?: No Results AMB Hemoglobin A1c AMB Hemoglobin A1c 6.0 % Last Edit by DULCE Bran on 08/05/24 15:14 Immunizations Fluarix Triv [id number] (PF) 45 mcg (15 mcg x 3)/0.5 mL IM syringe Performing Provider: Aleksandr Valenzuela MD [facility] Administered by: GILMER Zarate on 08/05/24 15:23 Dose Route Admin Location Dispensed Lot Number Expiration Date [facility] Manager 0.5 mL IM Left Deltoid 0.5 mL [id number] 04/28/25 [id number] [place] VIS Given Date VIS Provided VIS Publication Date 08/05/24 Single Vaccine 21 Eligibility Eligibility Date Funding Source Not [facility] Eligible 08/05/24 Private Results Reviewed Results Reviewed: Laboratory Last Values Hgb A1c (Clinic) 6.0 % (4.0-6.0) 08/05/24 14:58 Assessment & Plan Assessment & Plan (1) Medicare annual wellness visit, subsequent: Code(s): Z00.00 - Encounter for general adult medical examination without abnormal findings Plan: Patient is advised to eat healthy, keep well hydrated, keep active and have adequate sleep. (2) Type 2 diabetes mellitus with hyperglycemia: Comment: decline eye exam Code(s): E11.65 - Type 2 diabetes mellitus with hyperglycemia Qualifiers: Diabetes mellitus skilled nursing insulin use: without extermination supervisor use Qualified Code(s): E11.65 - Type 2 diabetes mellitus with hyperglycemia Plan: Decrease the amount of carbohydrate intake, pasta, bread, rice and potatoes are all sugar and that is aside from all the sweet stuff, remember that fruits are good but they are Sweet also. Hemoglobin A1c goal of less than 6.5. Patient on Farxiga 10 mg once a day metformin is a 1000 mg twice a day (3) Hypertension: Code(s): I10 - Essential (primary) hypertension Qualifiers: Hypertension type: essential hypertension Qualified Code(s): I10 - Essential (primary) hypertension Plan: Continue with blood pressure medication. Decrease salt intake and exercise on lisinopril 10 mg once a (4) Hypercholesterolemia: Code(s): E78.00 - Pure hypercholesterolemia, unspecified Plan: Avoid fried foods, chicken skin, eggs, butter margarine, pastries and meat. Be it pork or beef they have a lot of cholesterol LDL goal of less than 100 and triglyceride of less than 150 on rosuvastatin 20 mg once a day and fenofibrate 160 mg once a day patient needs to have blood work done (5) Impacted cerumen of both ears: Code(s): H61.23 - Impacted cerumen, bilateral Plan: will have to schedule for ear irrigation Orders: Orders Influenza [id number] Immunization Today Z23 - Encounter for immunization AMB Hemoglobin A1c Today E11.65 - Type 2 diabetes mellitus with hyperglycemia Coding Level of Care Code Medicare Subsequent (G0439) Diagnoses Medicare annual wellness visit, subsequent Z00.00 Type 2 diabetes mellitus with hyperglycemia, without long-term current use of insulin E11.65 Diabetes mellitus skilled nursing insulin use: without extermination supervisor use Essential hypertension I10 Hypertension type: essential hypertension Hypercholesterolemia E78.00 Impacted cerumen of both ears H61.23
[2024-08-05 15:01] VITALS: BP 130/70; PULSE 97; O2SAT 95; BMI 25.9
== END 2024-08-05 15:36 | disposition home or self-care (01) ==
PROVIDERS: PCP Internal Medicine; Visit Provider Internal Medicine
DX: Z00.00 Encounter for general adult medical examination without abnormal findings (principal); E11.65 Type 2 diabetes mellitus with hyperglycemia; I10 Essential (primary) hypertension; E78.00 Pure hypercholesterolemia, unspecified; H61.23 Impacted cerumen, bilateral; Z23 Encounter for immunization

== ENCOUNTER → 2024-08-05 14:54 | Outpatient (BNVA) | payer MEDICARE, MEDICAID, SELFPAY | PROVIDERS: PCP Internal Medicine; Visit Provider Internal Medicine | DX: Z00.01 Encounter for general adult medical examination with abnormal findings (principal); Z23 Encounter for immunization; E11.65 Type 2 diabetes mellitus with hyperglycemia; I10 Essential (primary) hypertension; E78.00 Pure hypercholesterolemia, unspecified; H61.23 Impacted cerumen, bilateral | CPT/HCPCS: 83036; 90471; 90656 ==

== ENCOUNTER 2024-10-02 10:20 | Outpatient (AMB) | payer MEDICARE, MEDICAID, SELFPAY ==
[2024-10-02 10:26] VITALS: BMI 26.1
--- NOTE | 2024-10-02 10:26 | A.OFFVIS_ITS ---
VS Expanded 10/02/24 10:26 Height 5 ft 10 in Weight 181 lb 10.574 oz BMI 26.1 Intake Visit Reasons: T2D/ Left vm Allergies folic acid Allergy (Unknown, Verified 08/05/24 15:01) Unknown Nutrition Presentation Details: Pt presets for MNT f/u for T2DM Pt reports doing well Pt reports working on reducing on pastries/sweets Reports typically having muffin in AM with coffee, sometimes has bananas instead other meals may be mashed potato with kielbasa or hot dogs on whole wheat break has yogurts and fruits as snack Noted A1c on 07/2024 at 6.0% and noted 6 lbs wt loss since 05/2024 BS Monitoring Most Recent Diabetes Results: No Data to Display [facility] Medical History (Updated 08/05/24 @ 15:30 by Aleksandr Valenzuela MD) Colon cancer screening History of cigarette smoking Initial Medicare annual wellness visit (~08/31/21) Colonoscopy refused Hypercholesterolemia Vitamin D deficiency Psoriasis Hypertension Fragile X syndrome Type 2 diabetes mellitus with hyperglycemia Surgical History History of inguinal hernia repair Family History Father Dementia Chronic mental illness Mental health disorder Mother Hypertension Hyperlipidemia Brother Diabetes Paternal Grandfather Pancreatic cancer Maternal Aunt Uterine cancer Maternal Uncle Stomach cancer Social History Housing: Apartment Alcohol intake: never Patient Tobacco Use Status: Never used Tobacco e-Cigarette/Vaping Use: Never Used Second Hand Smoke Exposure: No service: No Current occupational status: unemployed Cognitive needs: No Hearing needs: No Vision needs: Yes Assessment & Plan Assessment & Plan (1) Type 2 diabetes mellitus with hyperglycemia: Comment: decline eye exam Code(s): E11.65 - Type 2 diabetes mellitus with hyperglycemia Category: Medical Qualifiers: Diabetes mellitus residential insulin use: without rodent exterminator use Qualified Code(s): E11.65 - Type 2 diabetes mellitus with hyperglycemia Plan: Wt: 83 Kg ( 03/2024 ), 86kg (05/2024), 85kg (08/22), 83kg(10/22) Est kcal needs as per MSJ: 2200 (40% carb, 30% protein/fat) Est fluid needs as per 25-30 ml/d: 2100 Est prot per day as per 1 g/kg bw: 83 Recommend fiber intake : 8-10 g per day and gradually increase to 25-28 g per day for women and 35-38 g for men or as tolerated Recommend sodium intake per day : less than 2000 mg Educated patient on: ( R = reviewed V = verbalizes understanding N/R = needs review N/A = not applicable Reducing sugars * Food sources of carbohydrate, adequate serving sizes and its role in various h ealth conditions: R V N/R * Differences between complex carbohydrates a simple carbohydrates, role of fiber in diet: R * Lean protein sources of foods: R V NR * Differences between types of fats and role in diet (mono on saturated fat fatty acids, saturated fatty acids, trans fats): R * Food sources of sodium in salt and healthy modifications for heart health in kidney health: R V R/V * Vitamins and minerals: R V N/R * Healthy plate method concept: R * Physical activity: Benefits a precaution: R V N/R * Hypoglycemia protocol (rule of 15): R V N/R * Dietary prevention of Hyperglycemia: R Patient Instructions: * Choose whole grain bread * Choose low sodium cheese see list of food options Coding Level of Care Code Nutr Indiv Subseq (88417) Diagnoses Type 2 diabetes mellitus with hyperglycemia, without long-term current use of insulin E11.65 Diabetes mellitus rodent exterminator insulin use: without rodent exterminator use Time Spent (min) 30
== END 2024-10-02 10:47 | disposition home or self-care (01) ==
PROVIDERS: PCP Internal Medicine; Visit Provider Dietitian, Registered
DX: E11.65 Type 2 diabetes mellitus with hyperglycemia (principal)

== ENCOUNTER → 2024-10-02 10:20 | Outpatient (BNVA) | payer MEDICARE, MEDICAID, SELFPAY | PROVIDERS: PCP Internal Medicine; Visit Provider Dietitian, Registered | DX: E11.65 Type 2 diabetes mellitus with hyperglycemia (principal) | CPT/HCPCS: 97803 ==

== ENCOUNTER 2024-10-10 12:49 | Outpatient (REF) | payer MEDICARE, MEDICAID, SELFPAY ==
[2024-10-13 04:59] LABS: TS Negative Control Passed; TS Panel A 0; TS Panel B 1; TS Positive Control Passed; TSpotTB Negative (Negative)
== END 2024-10-10 12:50 | disposition home or self-care (01) ==
LOC: HO.LAB 12:49
PROVIDERS: PCP Internal Medicine; Visit Provider Physician Assistant Medical
DX: L40.0 Psoriasis vulgaris (principal); Z79.899 Other long term (current) drug therapy
CPT/HCPCS: 36415; 86481

== ENCOUNTER → 2025-01-09 13:25 | Outpatient (AMB) | payer MEDICARE, MEDICAID, SELFPAY ==
[2025-01-09 13:35] VITALS: BMI 26.9
--- NOTE | 2025-01-09 13:35 | A.OFFVIS_ITS ---
VS Expanded 01/09/25 13:35 Height 5 ft 10 in Weight 187 lb 13.341 oz BMI 26.9 Intake Visit Reasons: T2DM Allergies folic acid Allergy (Unknown, Verified 08/05/24 15:01) Unknown Nutrition Presentation Details: Pt presents for MNT f/u for T2DM Pt reports doing well. Lately has been eating out more frequently , choosing fried food items Reports having fruits/veg at home and working on following healthy plate method. BS Monitoring Most Recent Diabetes Results: No Data to Display [facility] Medical History (Updated 01/09/25 @ 13:[address], LDN) Colon cancer screening History of cigarette smoking Initial Medicare annual wellness visit (~08/31/21) Colonoscopy refused Hypercholesterolemia Vitamin D deficiency Psoriasis Hypertension Fragile X syndrome Type 2 diabetes mellitus with hyperglycemia Surgical History History of inguinal hernia repair Family History Father Dementia Chronic mental illness Mental health disorder Mother Hypertension Hyperlipidemia Brother Diabetes Paternal Grandfather Pancreatic cancer Maternal Aunt Uterine cancer Maternal Uncle Stomach cancer Social History Housing: Apartment Alcohol intake: never Patient Tobacco Use Status: Never used Tobacco e-Cigarette/Vaping Use: Never Used Second Hand Smoke Exposure: No service: No Current occupational status: unemployed Cognitive needs: No Hearing needs: No Vision needs: Yes Assessment & Plan Assessment & Plan (1) Type 2 diabetes mellitus with hyperglycemia: Code(s): E11.65 - Type 2 diabetes mellitus with hyperglycemia Category: Medical Qualifiers: Diabetes mellitus skilled nursing insulin use: without watermaster use Qualified Code(s): E11.65 - Type 2 diabetes mellitus with hyperglycemia Plan: Wt: 85kg ( 01/21) , 83 Kg ( 03/2024 ), 86kg (05/2024), 85kg (08/22), 83kg(10/22) Est kcal needs as per MSJ: 2200 (40% carb, 30% protein/fat) Est fluid needs as per 25-30 ml/d: 2100 Est prot per day as per 1 g/kg bw: 83 Recommend fiber intake : 8-10 g per day and gradually increase to 25-28 g per day for women and 35-38 g for men or as tolerated Recommend sodium intake per day : less than 2000 mg Educated patient on: ( R = reviewed V = verbalizes understanding N/R = needs review N/A = not applicable Reducing sugars * Food sources of carbohydrate, adequate serving sizes and its role in various health conditions: R V N/R * Differences between complex carbohydrates a simple carbohydrates, role of fiber in diet: R * Lean protein sources of foods: R V NR * Differences between types of fats and role in diet (mono on saturated fat fatty acids, saturated fatty acids, trans fats): R * Food sources of sodium in salt and healthy modifications for heart health in kidney health: R V R/V * Vitamins and minerals: R V N/R * Healthy plate method concept: R * Physical activity: Benefits a precaution: R * Hypoglycemia protocol (rule of 15): R V N/R * Dietary prevention of Hyperglycemia: R * Reviewed relationship of food portions, weight and glucose level: R Patient Instructions: Opt for lower fat food options when eating out and follow healthy plate method Coding Level of Care Code Nutr Indiv Subseq (49915) Diagnoses Type 2 diabetes mellitus with hyperglycemia, without long-term current use of insulin E11.65 Diabetes mellitus skilled nursing insulin use: without skilled nursing use Time Spent (min) 20
== END ==
LOC: HO.ENCR 13:25
PROVIDERS: PCP Internal Medicine; Visit Provider Dietitian, Registered
DX: E11.65 Type 2 diabetes mellitus with hyperglycemia (principal)

== ENCOUNTER → 2025-01-09 13:25 | Outpatient (BNVA) | payer MEDICARE, MEDICAID, SELFPAY | PROVIDERS: PCP Internal Medicine; Visit Provider Dietitian, Registered | DX: E11.65 Type 2 diabetes mellitus with hyperglycemia (principal); Z71.3 Dietary counseling and surveillance | CPT/HCPCS: 97803 ==

== ENCOUNTER 2025-02-11 09:35 | Outpatient (AMB) | payer MEDICARE, MEDICAID, SELFPAY ==
[2025-02-11 09:41] VITALS: BP 122/86; PULSE 112; O2SAT 96; BMI 26.8
--- NOTE | 2025-02-11 09:41 | A.OFFPC_ITS ---
Vital Signs 02/11/25 09:41 Height 5 ft 10 in Weight 187 lb BMI 26.8 BP 122/86 Blood Pressure Location Lt brachial Position Sitting Pulse 112 H Pulse Source Pulse Oximeter Pulse Oximetry (%) 96 Oxygen Delivery Method Room Air Intake Visit Reasons: 6 month follow up - see comments Shactor Helper Required: No Accompanied by: Self / Same As Patient Allergies folic acid Allergy (Unknown, Verified 02/11/25 09:42) Unknown Tobacco use date assessed: 02/11/25 Fall risk assessment: No Falls in past year Last assessed Fall Risk: 02/11/25 Dental Screening Dental Screen Date: 02/11/25 Did you have a dental visit in the last 12 months?: No Did you have a dental problem in the last 6 months where you did not have access to dental care?: No Was dental information given to patient?: No FOR[facility]LY [facility], [facility] Medical History (Updated 02/11/25 @ 10:05 by Aleksandr Valenzuela MD) Colon cancer screening History of cigarette smoking Initial Medicare annual wellness visit (~08/31/21) Colonoscopy refused Hypercholesterolemia Vitamin D deficiency Psoriasis Hypertension Fragile X syndrome Type 2 diabetes mellitus with hyperglycemia Surgical History History of inguinal hernia repair Family History Father Dementia Chronic mental illness Mental health disorder Mother Hypertension Hyperlipidemia Brother Diabetes Paternal Grandfather Pancreatic cancer Maternal Aunt Uterine cancer Maternal Uncle Stomach cancer Social History Housing: Apartment Alcohol intake: never Patient Tobacco Use Status: Never used Tobacco e-Cigarette/Vaping Use: Never Used Second Hand Smoke Exposure: No service: No Current occupational status: unemployed Cognitive needs: No Hearing needs: No Vision needs: Yes Questionnaire PHQ-9 Over the last 2 weeks, how often have you been bothered by any of the following problems? 1. Little interest or pleasure in doing things: not at all 2. Feeling down, depressed, or hopeless: not at all 3. Trouble falling or staying asleep, or sleeping too much: not at all 4. Feeling tired or having little energy: not at all 5. Poor appetite or overeating: not at all 6. Feeling bad about yourself - or that you are a failure or have let yourself or your family down: not at all 7. Trouble concentrating on things, such as reading the newspaper or watching television: not at all 8. Moving or speaking so slowly that other people could have noticed. Or the opposite - being so fidgety or restless that you have been moving around a lot more than usual: not at all 9. Thoughts that you would be better off or of hurting yourself in some way: not at all Total score: 0 Depression Screening Interpretation: Negative Depression Screening Done: Yes Source: Developed by Drs. Vasyl Sequeira, Leyla Dia, Moody King and colleagues, with an educational joel from [employer]. Thrive Questionnaire Date Thrive assessed: 02/11/25 I am a: Patient What is your living situation today?: I have a steady place to live Within the past 12 months, did the food you bought not last and you didn't have the money to get more?: Never true Within the past 12 months, did you worry whether your food would run out before you got money to buy more?: Never true Do you have trouble paying for medicines?: No Do you have trouble getting transportation to medical appointments?: No Do you have trouble paying your heating and electricity bill?: No Do you have trouble taking care of your child, family member or friend?: No Do you have trouble with day-to-day activities such as bathing, preparing meals, shopping, managing finances, etc.?: No Are you currently unemployed and looking for a job?: No Are you interested in more education?: No Please select the resources that you would like help with: None Currently or been in a relationship where the following occur: No concerns reported THRIVE Score: 0 AUDIT C Alcohol Use Questionnaire (AUDIT-C) 1. How often do you have a drink containing alcohol?: Monthly or less 2. How many drinks containing alcohol do you have on a typical day when you are drinking?: 1 or 2 3. How often do you have six or more drinks on one occasion?: Never Total Score: 1 JUANITO-7 AMB Questionnaire JUANITO-7 Date JUANITO - 7 assessed: 02/11/25 Feeling nervous, anxious, or on edge: 0 = Not at all Not being able to stop or control worryin = Not at all Worrying too much about different things: 0 = Not at all Trouble relaxin = Not at all Being so restless that it is hard to sit still: 0 = Not at all Becoming easily annoyed or irritable: 0 = Not at all Feeling afraid as if something awful might happen: 0 = Not at all Total JUANITO-7 score (0-4 normal; 5-9 mild; 10-14 moderate; 15-21 severe): 0 Source: Developed by Drs. Vasyl Sequeira, Leyla Dia, Moody King and colleagues, with an educational joel from [employer]. Physical exam (Primary Care) Vital Signs: Last Vital Signs Pulse 112 H 02/11/25 09:41 BP 122/86 02/11/25 09:41 Pulse Ox 96 02/11/25 09:41 Oxygen Delivery Method Room Air 02/11/25 09:41 BMI result Body Mass Index 26.8 Tobacco/Smoking Status: Tobacco use Status Tobacco use date assessed 02/11/25 02/11/25 09:50 Patient Tobacco Use Status Never used Tobacco 02/11/25 09:50 e-Cigarette/Vaping Use Never Used 02/11/25 09:50 PHQ-9: PHQ-9 Score PHQ-9: Total score 0 02/11/25 09:50 Depression Screening Interpretation: Negative Thrive Assessment: Date of Thrive Assessment Date Thrive assessed 02/11/25 02/11/25 09:50 Currently or been in a relationship where the following occur: No concerns reported Const General: alert; No acute distress Eyes Conjunctivae: conjunctivae normal Resp Auscultation: clear to auscultation bilaterally Cardio Rate: regular rate Rhythm: regular rhythm GI Inspection: Yes normal to inspection Extrem General: Yes normal to inspection and No edema Coding Level of Care Code Est Pt Level 4 (01206) Complex EM visit Add On G2211 Diagnoses Type 2 diabetes mellitus with hyperglycemia, without long-term current use of insulin E11.65 Diabetes mellitus parts counterman insulin use: without jail use Essential hypertension I10 Hypertension type: essential hypertension Hypercholesterolemia E78.00 JUANITO (generalized anxiety disorder) F41.1 Assessment & Plan Assessment & Plan (1) Type 2 diabetes mellitus with hyperglycemia: Code(s): E11.65 - Type 2 diabetes mellitus with hyperglycemia Category: Medical Qualifiers: Diabetes mellitus jail insulin use: without jail use Qualified Code(s): E11.65 - Type 2 diabetes mellitus with hyperglycemia Plan: Decrease the amount of carbohydrate intake, pasta, bread, rice and potatoes are all sugar and that is aside from all the sweet stuff, remember that fruits are good but they are Sweet also. Hemoglobin A1c goal of less than 6.5. Patient is reminded about reminded about the Ophthalmology patient is on metformin a 1000 mg twice a day Farxiga 10 mg once a day. DECLINED Opthalmology (2) Hypertension: Code(s): I10 - Essential (primary) hypertension Category: Medical Qualifiers: Hypertension type: essential hypertension Qualified Code(s): I10 - Essential (primary) hypertension Plan: Continue with blood pressure medication. Decrease salt intake and exercise on lisinopril 10 mg once a day (3) Hypercholesterolemia: Code(s): E78.00 - Pure hypercholesterolemia, unspecified Category: Medical Plan: Avoid fried foods, chicken skin, eggs, butter margarine, pastries and meat. Be it pork or beef they have a lot of cholesterol LDL goal of less than 100 and triglyceride of less than 150 patient is on fenofibrate 160 mg once a day and rosuvastatin 20 patient needs to have blood work. (4) JUANITO (generalized anxiety disorder): Code(s): F41.1 - Generalized anxiety disorder Category: Medical Plan: Declined Ophthalmology referral Plan History of Present Illness The patient is a 65-year-old male presenting with follow-up for chronic conditions. He has a medical history that includes type 2 diabetes mellitus, essential hypertension, and hypercholesterolemia. The diabetes management plan includes maintaining a hemoglobin A1c goal of less than 6.5%, with the patient currently on Metformin 1000 mg twice daily and Farxiga 10 mg once daily. The patient reports adherence to the prescribed medications. For hypertension, the patient is on Lisinopril 10 mg once daily. The patient?s blood pressure was reviewed during the visit. For hypercholesterolemia, the patient is on 160 mg of Fenofibrate and 20 mg of Rosuvastatin, with a target LDL cholesterol level of less than 100 mg/dL and triglycerides of less than 150 mg/dL. The patient also has a history of Fragile X Syndrome and anxiety disorder; he is currently under the care of a nurse practitioner for anxiety. There were discussions about his need to follow up with an ventilator specialist and to undergo routine bloodwork. Additionally, bloodwork was last performed in November 2023. Health Maintenance - Discussed diabetes management with a target hemoglobin A1c of less than 6.5%. - Blood pressure management aims for regular monitoring and medication adherence. - Lipid management for LDL cholesterol goal of less than 100 mg/dL and triglyceride level of less than 150 mg/dL. - Tetanus shot confirmed as up to date. - Pneumonia shot noted, with next administration planned for next year. - Discussed the shingles vaccination and its benefits. - Cologuard testing due later this year, last performed in June 2022. Social History - Discussed that the patient is about to become a great uncle and family dynamics relating to this. - Patient mentioned regular follow-up with a nurse practitioner for anxiety management. - No reports of issues with bowel movements or urination. Review of Systems - Cardiovascular: Denies issues but discusses blood pressure management. - Endocrine: Reports concerns on diabetes and cholesterol management. - Gastrointestinal: Denies constipation. - Genitourinary: Denies any problems with urination. - Psychological: Reports anxiety, in treatment with a nurse practitioner. Physical Exam Results - Labs: Recent bloodwork was conducted in November 2023. - Diagnostics: Cologuard tested in June 2022. Plan The plan for today includes continuing current diabetes, hypertension, and cholesterol medications. We will monitor the patient?s laboratory values as planned, with a repeat blood test scheduled following fasting for accuracy in glucose and lipid levels. The patient was informed about maintaining regular ophthalmology appointments and considering shingles vaccination. A Cologuard test should be repeated later this year. Combining these medical management strategies will help in controlling the patient's chronic conditions. Continued engagement with mental health management is encouraged for her anxiety. Future visits may discuss additional preventive care as needed. Patient was informed and verbally consented to the use of an ambient scribe for clinic note documentation during this visit. Discussion Notes I discussed with the patient the importance of continued management of diabetes, hypertension, and hypercholesterolemia. The benefits and risks of current medication regimens were reviewed. I advised the patient to complete the scheduled bloodwork and to continue ophthalmology follow-ups due to diabetes. Preventive care, including vaccinations such as the pneumonia and shingles vaccines, was discussed, and the patient was receptive. The patient expressed understanding of the need for Cologuard testing later this year. Continued collaboration with the nurse practitioner for anxiety management was encouraged. I reinforced the importance of adherence to medication and follow-ups to optimize health outcomes. Patient Instructions - Continue current diabetes and hypertension medications as prescribed. - Schedule and complete fasting bloodwork as soon as possible. - Follow up with ophthalmology as referred. - Consider the shingles vaccine at a local pharmacy. - Repeat Cologuard test later this year. - Monitor blood pressure regularly and report significant changes. - Maintain regular appointments with your nurse practitioner for anxiety. - Seek immediate care if new symptoms or issues arise.
== END 2025-02-11 10:10 | disposition home or self-care (01) ==
LOC: HO.HMCH 09:35
PROVIDERS: PCP Internal Medicine; Visit Provider Internal Medicine
DX: E11.65 Type 2 diabetes mellitus with hyperglycemia (principal); I10 Essential (primary) hypertension; E78.00 Pure hypercholesterolemia, unspecified; F41.1 Generalized anxiety disorder

== ENCOUNTER → 2025-02-11 09:35 | Outpatient (BNVA) | payer MEDICARE, MEDICAID, SELFPAY | PROVIDERS: PCP Internal Medicine; Visit Provider Internal Medicine | DX: E11.65 Type 2 diabetes mellitus with hyperglycemia (principal); E78.00 Pure hypercholesterolemia, unspecified; I10 Essential (primary) hypertension; F41.1 Generalized anxiety disorder | CPT/HCPCS: 99212 ==

== ENCOUNTER 2025-07-21 08:32 | Outpatient (REF) | payer MEDICARE, MEDICAID, SELFPAY ==
[2025-07-21 08:59] LABS: MANUAL DIFF FLAG NO
[2025-07-21 09:38] LABS: Hematocrit 51.5 % (42.0-52.0); Hemoglobin 17.0 g/dl (14.0-18.0); Imm Gran Abs Auto 0.01 X10*3/uL (0.00-0.03); Imm Gran Pct Auto 0.2 % (0.0-0.4); Lymphocytes Absolute Auto 1.7 X10*3/uL (1.2-4.9); Mean Corpuscular HGB Conc 33.0 g/dl (31.0-36.0); Mean Corpuscular Hemoglobin 33.2 pg (27.0-33.0); Mean Corpuscular Volume 100.6 fL (80.0-98.0); NRBC Abs Auto 0.000 X10*3/uL (0.0-0.012); NRBC Pct Auto 0.0 /100WBC (0.0-0.2); Platelet Count 250 X10*3/uL (160-400); Red Blood Count 5.12 X10*6/uL (4.60-5.80); White Blood Count 6.0 X10*3/uL (4.8-10.8)
[2025-07-21 09:43] LABS: Hemoglobin A1C 245.4019 umol/L; Total Hemoglobin (HGBA1C) 4381.7053 umol/L
[2025-07-21 10:14] LABS: Alanine Aminotransferase 35 U/L (0-40); Albumin Level 4.8 g/dL (3.5-5.0); Alkaline Phosphatase 67 U/L (39-117); Anion Gap 11 (12-20); Aspartate Amino Transferase 33 U/L (5-37); Blood Urea Nitrogen 14 mg/dL (9-16); Calcium 9.4 mg/dL (8.4-10.2); Carbon Dioxide 27 mmol/L (22-29); Chloride 105 mmol/L (96-108); Cholesterol 171 mg/dL (<200); Estimated Glomerular Filt Rate > 60; HDL Cholesterol 33 mg/dL (>40); Potassium 3.8 mmol/L (3.3-5.1); Sodium 139 mmol/L (135-145); Total Protein 7.6 g/dL (6.5-8.0); Triglycerides 167 mg/dL (<150)
[2025-07-21 10:33] LABS: Free T4 (Free Thyroxine) 0.71 ng/dL (0.71-1.85); Thyroid Stimulating Hormone 2.41 uIU/mL (0.32-4.0)
[2025-07-21 10:35] LABS: Folate 10.7 ng/mL (> or = 4.0); Vitamin B12 329 pg/mL (200-900)
[2025-07-21 11:22] LABS: Microalbum/Creatinine Ratio Ur 19.1 ug/mg cr (<30)
== END 2025-07-21 08:33 | disposition home or self-care (01) ==
LOC: HO.LAB 08:32
PROVIDERS: Visit Provider Internal Medicine
DX: Z00.00 Encounter for general adult medical examination without abnormal findings (principal); I10 Essential (primary) hypertension; E11.65 Type 2 diabetes mellitus with hyperglycemia; F41.1 Generalized anxiety disorder; E78.00 Pure hypercholesterolemia, unspecified; Z12.11 Encounter for screening for malignant neoplasm of colon; Z12.5 Encounter for screening for malignant neoplasm of prostate; Z79.84 Long term (current) use of oral hypoglycemic drugs; Z79.899 Other long term (current) drug therapy
CPT/HCPCS: 36415; 80053; 80061; 82043; 82570; 82607; 82746; 83036; 84153; 84439; 84443; 85025

== ENCOUNTER 2025-07-21 16:01 | Outpatient (AMB) | payer MEDICARE, MEDICAID, SELFPAY ==
--- NOTE | 2025-07-21 16:17 | MHC.PC.OV ---
Intake Visit Reasons: AWV Allergies folic acid Allergy (Unknown, Verified 02/11/25 09:42) Unknown Tobacco use date assessed: 02/11/25 Dental Screening Dental Screen Date: 02/11/25 [facility] Medical History (Updated 02/21/25 @ 17:59 by Aleksandr Valenzuela MD) Colon cancer screening History of cigarette smoking Initial Medicare annual wellness visit (~08/31/21) Colonoscopy refused Hypercholesterolemia Vitamin D deficiency Psoriasis Hypertension Fragile X syndrome Type 2 diabetes mellitus with hyperglycemia Surgical History History of inguinal hernia repair Family History Father Dementia Chronic mental illness Mental health disorder Mother Hypertension Hyperlipidemia Brother Diabetes Paternal Grandfather Pancreatic cancer Maternal Aunt Uterine cancer Maternal Uncle Stomach cancer Social History Housing: Apartment Alcohol intake: never Patient Tobacco Use Status: Never used Tobacco e-Cigarette/Vaping Use: Never Used Second Hand Smoke Exposure: No service: No Current occupational status: unemployed Cognitive needs: No Hearing needs: No Vision needs: Yes Questionnaire Thrive Questionnaire Date Thrive assessed: 02/11/25 JUANITO-7 AMB Questionnaire JUANITO-7 Date JUANITO - 7 assessed: 02/11/25 Source: Developed by Drs. Vasyl Sequeira, Leyla Dia, Moody King and colleagues, with an educational joel from [employer]. Physical exam (Primary Care) Tobacco/Smoking Status: Tobacco use Status Tobacco use date assessed 02/11/25 02/11/25 09:50 Patient Tobacco Use Status Never used Tobacco 02/11/25 09:50 e-Cigarette/Vaping Use Never Used 02/11/25 09:50 Thrive Assessment: Date of Thrive Assessment Date Thrive assessed 02/11/25 02/11/25 09:50 Coding
[2025-07-21 16:33] VITALS: BP 108/60; PULSE 90; RESP 18; TEMP 36.2; O2SAT 94; BMI 26.9
--- NOTE | 2025-07-21 16:36 | AM.OFFVISMDC ---
Intake Vital Signs 07/21/25 16:33 Height 5 ft 10 in Weight 187 lb 4 oz BMI 26.9 BP 108/60 Blood Pressure Location Lt brachial Position Sitting Respiration 18 Pulse 90 Pulse Source Pulse Oximeter Temp 97.1 F Temp Source Temporal Artery Scan Pulse Oximetry (%) 94 Oxygen Delivery Method Room Air Intake Visit Reasons: AWV [employer] Required: No Accompanied by: Staff Allergies folic acid Allergy (Unknown, Verified 07/21/25 16:37) Unknown Medication List - Last Reconciled 07/21/25 by Aleksandr Valenzuela MD cyanocobalamin (vitamin B-12) 1,000 mcg PO DAILY 90 days dapagliflozin propanediol (Farxiga) 10 mg PO DAILY escitalopram oxalate 10 mg PO BID fenofibrate 160 mg PO DAILY lisinopril 10 mg PO DAILY metformin 1,000 mg PO BID 90 days rosuvastatin 20 mg PO DAILY HPI AWV HPI Details [facility] nutrition [facility] Medical History (Updated 07/21/25 @ 17:22 by Aleksandr Valenzuela MD) Colon cancer screening History of cigarette smoking Initial Medicare annual wellness visit (~08/31/21) Colonoscopy refused Hypercholesterolemia Vitamin D deficiency Psoriasis Hypertension Fragile X syndrome Type 2 diabetes mellitus with hyperglycemia Surgical History History of inguinal hernia repair Family History Father Dementia Chronic mental illness Mental health disorder Mother Hypertension Hyperlipidemia Brother Diabetes Paternal Grandfather Pancreatic cancer Maternal Aunt Uterine cancer Maternal Uncle Stomach cancer Social History Housing: Apartment Alcohol intake: never Patient Tobacco Use Status: Never used Tobacco e-Cigarette/Vaping Use: Never Used Second Hand Smoke Exposure: No service: No Current occupational status: unemployed Cognitive needs: No Hearing needs: No Vision needs: Yes Questionnaire Medicare Wellness Checkup What gender do you identify with?: male During the past 4 weeks, how much have you been bothered by emotional problems such as feeling anxious, depressed, irritable, sad or downhearted, and blue?: not at all During the past 4 weeks, has your physical & emotional health limited your social activities with family, friends, neighbors, or groups?: not at all During the past 4 weeks, how much bodily pain have you generally had?: no pain During the past 4 weeks, was someone available to help you if you needed & wanted help?: yes, as much as I wanted During the past 4 weeks, what was the hardest physical activity you could do for at least 2 minutes?: moderate Can you get to places out of walking distance without help? (For eg., can you travel alone on buses, taxis or drive your car?): Yes Can you go shopping for groceries or clothes without someone's help?: Yes Can you prepare your own meals?: Yes Can you do your housework without help?: Yes Because of any health problems, do you need the help of another person with your personal care needs such as eating, bathing, dressing or getting around the house?: No Can you handle your own money without help?: Yes During the past 4 weeks, how would you rate your health in general?: good During the past 4 weeks how have things been going for you?: pretty well Are you having difficulties driving your car?: not applicable, I don't use a car Do you always fasten your seat belt when you are in a car?: yes, usually During past 4 weeks, have you been bothered by the following: never: Falling or dizzy when standing up, Sexual problems?, Trouble eating well?, Teeth or denture problems?, Problems using the telephone? and Tiredness or fatigue? Have you fallen 2 or more times in the past year?: No Are you afraid of falling?: No Are you a smoker?: no During the past 4 weeks, how many drinks of wine, beer, or other alcoholic beverages did you have?: no alcohol at all Do you exercise for about 20 minutes 3 or more times a week?: no, I usually do not exercise this much Have you been given information to help with the following?: yes: Hazards in your house that might hurt you? and yes: Keeping track of your medications? How often do you have trouble taking medicines the way you have been told to take them?: I always take medicine as prescribed How confident are you that you can control & manage most of your health problems?: very confident What is your race?: White PHQ-9 Over the last 2 weeks, how often have you been bothered by any of the following problems? 1. Little interest or pleasure in doing things: not at all 2. Feeling down, depressed, or hopeless: not at all 3. Trouble falling or staying asleep, or sleeping too much: not at all 4. Feeling tired or having little energy: not at all 5. Poor appetite or overeating: not at all 6. Feeling bad about yourself - or that you are a failure or have let yourself or your family down: not at all 7. Trouble concentrating on things, such as reading the newspaper or watching television: not at all 8. Moving or speaking so slowly that other people could have noticed. Or the opposite - being so fidgety or restless that you have been moving around a lot more than usual: not at all 9. Thoughts that you would be better off or of hurting yourself in some way: not at all Total score: 0 Source: Developed by Drs. Vasyl Sequeira, Leyla Dia, Moody King and colleagues, with an educational joel from [id number]. Review of Systems Const Denies poor appetite and Denies weakness Eyes Denies no additional complaints ENT Reports Normal hearing present, Denies dizziness, Denies nasal congestion, Denies tinnitus and Denies sore throat Card Denies chest pain, Denies syncope, Denies rapid heart rate and Denies dyspnea Resp Denies cough and Denies dyspnea GI Denies change in stool character, Reports constipation, Denies diarrhea, Denies nausea and Denies vomiting Denies dysuria and Denies urinary frequency Neuro Reports Normal hearing present, Denies confusion, Denies dizziness, Denies syncope and Denies weakness Psych Denies confusion Physical Exam Vital Signs: Last Vital Signs Temp 97.1 F 07/21/25 16:33 Pulse 90 07/21/25 16:33 Resp 18 07/21/25 16:33 BP 108/60 07/21/25 16:33 Pulse Ox 94 07/21/25 16:33 Oxygen Delivery Method Room Air 07/21/25 16:33 BMI result Body Mass Index 26.9 Const General: No confusion Orientation/consciousness: No confusion HEENT Head: Yes normocephalic Ears: external ears normal and TM's normal bilaterally Face and sinus: Yes normal facial exam Mouth: moist mucous membranes Throat: Yes tonsils normal Eyes Conjunctivae: conjunctivae normal Pupils: Equal, round and reactive pupils present and Pupil accommodation reflex normal Direct Ophthalmoscopy: normal light reflex Neck Neck: No lymphadenopathy Thyroid: Thyroid normal Chest Chest palpation & inspection: normal inspection of the chest Resp Effort & Inspection: normal respiratory effort and no audible wheezes Auscultation: clear to auscultation bilaterally, no crackles, no wheezes and lung sounds not diminished Cardio Rate: regular rate Rhythm: regular rhythm Peripheral pulses: radial pulses present and dorsalis pedis present GI Palpation (GI): no masses Auscultation: normal bowel sounds and normoactive bowel sounds Rectal Exam - Male: Yes deferred Skin General skin exam: no rashes or lesions noted Rashes: no rashes Neuro General: No confusion Cranial nerves: Yes Equal, round and reactive pupils present and Yes Normal hearing present Cognition (Neuro): normal cognition Gait exam (Neuro): Normal gait present Motor exam (neuro): 5/5 motor strength present throughout Deep tendon reflexes (DTR's): Right brachioradialis reflex intensity grade: 2+, Left brachioradialis reflex intensity grade: 2+, Right patellar reflex intensity grade: 2+ and Left patellar reflex intensity grade: 2+ Extrem General: No edema Assessment & Plan Assessment & Plan (1) Medicare annual wellness visit, subsequent: Code(s): Z00.00 - Encounter for general adult medical examination without abnormal findings Plan: Patient is advised to eat healthy, keep well hydrated, keep active and have adequate sleep. (2) Type 2 diabetes mellitus with hyperglycemia: Code(s): E11.65 - Type 2 diabetes mellitus with hyperglycemia Qualifiers: Diabetes mellitus correction insulin use: without extermination inspector use Qualified Code(s): E11.65 - Type 2 diabetes mellitus with hyperglycemia Plan: Decrease the amount of carbohydrate intake, pasta, bread, rice and potatoes are all sugar and that is aside from all the sweet stuff, remember that fruits are good but they are Sweet also. Hemoglobin A1c goal of less than 6.5. Patient is on Farxiga 10 mg once a day metformin a 1000 mg twice a day (3) Hypertension: Code(s): I10 - Essential (primary) hypertension Qualifiers: Hypertension type: essential hypertension Qualified Code(s): I10 - Essential (primary) hypertension Plan: Continue with blood pressure medication. Decrease salt intake and exercise on lisinopril 10 mg once a day (4) Hypercholesterolemia: Code(s): E78.00 - Pure hypercholesterolemia, unspecified Plan: Avoid fried foods, chicken skin, eggs, butter margarine, pastries and meat. Be it pork or beef they have a lot of cholesterol LDL goal of less than 100 and triglyceride of less than 150 on fenofibrate 160 mg once a day and rosuvastatin 20 mg once a day (5) JUANITO (generalized anxiety disorder): Code(s): F41.1 - Generalized anxiety disorder Plan: Continue with present therapy on Lexapro (6) Colon cancer screening: Comment: Gracy negative June 2022 Code(s): Z12.11 - Encounter for screening for malignant neoplasm of colon Plan History of Present Illness The patient is a 65-year-old male presenting for an annual wellness visit. He has a history of diabetes mellitus, hypertension, hypercholesterolemia, generalized anxiety disorder, and macrocytosis. The patient also has Fragile X syndrome, which contributes to mental and behavioral challenges. The patient's diabetes mellitus has been managed with Farxiga and metformin, although there have been issues with metformin tolerance. His hemoglobin A1c has increased from 6.0 in 2023 to 7.3, indicating poor glycemic control. Dietary habits, including high carbohydrate intake, have been identified as contributing factors. Hypertension is managed with lisinopril, and the patient reports no issues with this medication. Hypercholesterolemia is treated with fenofibrate and rosuvastatin, with a target LDL of less than 100 mg/dL. Recent lab results show an LDL of 105 mg/dL, which is above the target range. The patient has generalized anxiety disorder, for which he is taking Lexapro. He denies any new symptoms or exacerbations of anxiety since the last visit. Macrocytosis was noted in recent blood work, with normal renal function and electrolytes. The patient denies alcohol consumption, which is a potential cause of macrocytosis. Preventative care measures include colon cancer screening with a stool test, which was last performed in June 2022. Vaccinations are up to date, including tetanus and pneumonia, with recommendations for flu, COVID-19, and shingles vaccines. Health Maintenance - Colon cancer screening with stool test last performed in June 2022 - Vaccinations: Tetanus and pneumonia up to date; flu, COVID-19, and shingles vaccines recommended Social History - Dietary habits include high carbohydrate intake, contributing to poor glycemic control - Denies alcohol consumption Review of Systems - General: Denies dizziness, nausea, vomiting, fever, or syncope - Cardiovascular: Denies chest pain, dyspnea, or palpitations - Gastrointestinal: Reports occasional heartburn; denies dysphagia or constipation - Genitourinary: Denies dysuria; reports nocturia once per night - Neurological: Denies headaches or balance issues Physical Exam General: Cooperative, overweight, healthy appearing, comfortable, no acute distress and well developed Orientation: Patient oriented x3 Limitations: No limitations Head: Normal to inspection Ears: Hearing grossly normal bilaterally, some ear wax present, unable to see eardrum Nose: Normal external nose present Face and sinus: Normal facial exam Eyes: Appearance normal, both eyes and all related structures Neck: Normal visual inspection and Yes full ROM Respiratory: Normal respiratory effort and able to speak in complete sentences. Clear to auscultation bilaterally Cardiovascular: Regular rate and rhythm. Normal S1 and S2 GI: Normal to inspection. Soft to palpation and nontender Skin: No rashes or lesions noted Neuro: Patient oriented x3 Extremities: Normal to inspection Results - Labs: Hemoglobin A1c increased to 7.3, LDL cholesterol at 105 mg/dL, macrocytosis noted - Tests: Colon cancer screening with stool test last performed in June 2022 Plan Patient was informed and verbally consented to the use of an ambient scribe for clinic note documentation during this visit. 1. Diabetes Mellitus The patient's diabetes mellitus is currently managed with Farxiga and metformin, although there are issues with metformin tolerance. His hemoglobin A1c has increased to 7.3, indicating poor glycemic control. Dietary modifications, particularly reducing carbohydrate intake, were discussed as a means to improve glycemic control. The plan includes considering additional medication if dietary changes do not suffice, with a follow-up in three months to reassess A1c levels. 2. Hypertension Hypertension is managed with lisinopril 10 mg once daily, and the patient reports no issues with this regimen. 3. Hypercholesterolemia The patient's hypercholesterolemia is treated with fenofibrate and rosuvastatin, with a target LDL of less than 100 mg/dL. Recent lab results show an LDL of 105 mg/dL, which is above the target range. Dietary modifications were advised, and a follow-up lipid panel is planned in three months to reassess cholesterol levels. 4. Generalized Anxiety Disorder The patient is currently taking Lexapro for generalized anxiety disorder and reports no new symptoms or exacerbations. 5. Macrocytosis Macrocytosis was noted in recent blood work, with normal renal function and electrolytes. The patient denies alcohol consumption, which is a potential cause of macrocytosis. Further evaluation may be necessary if macrocytosis persists. 6. Preventative Care Preventative care measures include colon cancer screening with a stool test, last performed in June 2022, with a recommendation for follow-up in three years. Vaccinations are up to date, including tetanus and pneumonia, with recommendations for flu, COVID-19, and shingles vaccines. Discussion Notes During the visit, we discussed the management of diabetes mellitus, emphasizing the importance of dietary modifications to improve glycemic control. We also reviewed the patient's current medications for hypertension and hypercholesterolemia, with a plan to reassess in three months. Preventative care, including vaccinations and colon cancer screening, was addressed, with recommendations for follow-up and additional vaccines. Patient Instructions - Follow a low-carbohydrate diet to help manage blood sugar levels. - Continue current medications as prescribed. - Schedule follow-up appointments in three months for reassessment of diabetes and cholesterol levels. - Stay up to date with vaccinations, including flu, COVID-19, and shingles. - Consider scheduling an eye exam to monitor for diabetes-related complications. Orders: Orders Comprehensive Met. Panel 3 Months E11.65 - Type 2 diabetes mellitus with hyperglycemia Complete Blood Count Auto Diff 3 Months E11.65 - Type 2 diabetes mellitus with hyperglycemia Lipid Panel 3 Months E11.65 - Type 2 diabetes mellitus with hyperglycemia, E78.00 - Pure hypercholesterolemia, unspecified Hemoglobin A1c 3 Months E11.65 - Type 2 diabetes mellitus with hyperglycemia Referrals Gastroenterology Referral Z12.11 - Encounter for screening for malignant neoplasm of colon Quality Reporting (2019) Depression/Bipolar (159/160/161/177) PHQ-9: Total score: 0 Coding Level of Care Code Medicare Subsequent ([id number]) Diagnoses Medicare annual wellness visit, subsequent Z00.00 Type 2 diabetes mellitus with hyperglycemia, without long-term current use of insulin E11.65 Diabetes mellitus correction insulin use: without extermination inspector use Essential hypertension I10 Hypertension type: essential hypertension Hypercholesterolemia E78.00 JUANITO (generalized anxiety disorder) F41.1 Colon cancer screening Z12.11
== END 2025-07-21 17:46 | disposition home or self-care (01) ==
LOC: HO.HMCH 16:02
PROVIDERS: PCP Internal Medicine; Visit Provider Internal Medicine
DX: Z00.00 Encounter for general adult medical examination without abnormal findings (principal); E11.65 Type 2 diabetes mellitus with hyperglycemia; I10 Essential (primary) hypertension; E78.00 Pure hypercholesterolemia, unspecified; F41.1 Generalized anxiety disorder; Z12.11 Encounter for screening for malignant neoplasm of colon